=== PATIENT | male | born 1980 | race Caucasian/White ===

== ENCOUNTER 2021-04-15 09:52 | Inpatient (IN) ==
[2021-04-15 11:03] LABS: Basophils % 0.2 % (0.0-0.8); Hematocrit 47.2 VOL% (42.0-52.0); Hemoglobin 15.6 GM/DL (14.0-18.0); Immature Granulocytes % 0.7 %; Immature Granulocytes Absolute 0.03 #; Lymphocytes # 0.8 10*3/uL (1.4-4.0); Lymphocytes % 19.4 % (21.2-54.2); Mean Corpuscular HGB Conc 33.1 GM/DL (32-36); Mean Corpuscular Volume 85.5 FL (87-102); Mean Platelet Volume 10.2 FL (9.6-12.0); Monocytes % 3.6 % (1.7-12.7); Neutrophils % 76.1 % (38.7-73.9); Platelet Count 206 T/CUMM (130-400); Red Blood Count 5.52 MC/CUMM (3.8-5.5); Red Cell Distribution Width 12.3 % (9.3-17.3); White Blood Count 4.2 T/CUMM (4-12)
[2021-04-15 11:09] LABS: Ferritin 1686.9 ng/mL (26-388)
[2021-04-15 12:02] LABS: Osmolality,Calculated 275.1 MOS/KG (273-304); Potassium 3.5 MMOL/L (3.5-5.1)
[2021-04-15] MEDS ORDERED: ONDANSETRON 4 MG/2 ML VIAL IV PRN (12:50)
[2021-04-15] MEDS ORDERED: MELATONIN 3 MG TABLET PO PRN (12:50)
[2021-04-15] MEDS ORDERED: DEXTROSE 10% 250 ML BAG IV PRN (12:50)
[2021-04-15] MEDS ORDERED: AZITHROMYCIN INJ 500 MG in SODIUM CHLORIDE 0.9% 250 ML IV ONE (12:50)
[2021-04-15] MEDS ORDERED: GLUCAGON 1 MG VIAL IM PRN (12:50)
[2021-04-15] MEDS: CETIRIZINE 10 MG TABLET PO SCH (13:41)
[2021-04-15] MEDS: CHOLECALCIFEROL 1,000 UNIT TABLET PO SCH (13:41)
[2021-04-15] MEDS: ASCORBIC ACID 500 MG TABLET PO SCH ×2 (13:41→22:00)
[2021-04-15] MEDS: DEXAMETHASONE 4 MG/1 ML VIAL IV SCH (13:41)
[2021-04-15] MEDS: FAMOTIDINE 20 MG TABLET PO SCH ×2 (13:41→22:00)
[2021-04-15] MEDS: ZINC GLUCONATE 50 MG TABLET PO SCH (13:41)
[2021-04-15] MEDS ORDERED: REMDESIVIR 200 MG in SODIUM CHLORIDE 0.9% 210 ML IV ONE (15:00)
[2021-04-15] MEDS ORDERED: ALPRAZolam 0.5 MG TABLET PO PRN (17:07)
[2021-04-15] MEDS ORDERED: oxyCODONE/ACETAMINOPHEN 5-325 MG TABLET PO PRN (17:08)
[2021-04-15] MEDS ORDERED: fentaNYL 25 MCG/HR PATCH TRANSDERM SCH (17:30)
[2021-04-15] MEDS ORDERED: ZALEPLON 5 MG CAPSULE PO SCH (21:00)
[2021-04-15] MEDS: ENOXAPARIN 40 MG/0.4 ML SYRINGE SUBCUT SCH (22:00)
[2021-04-15] MEDS: TAMSULOSIN 0.4 MG CAPSULE PO SCH (22:00)
[2021-04-16] MEDS: ZIPRASIDONE 20 MG CAPSULE PO SCH ×3 (02:23→21:55)
[2021-04-16 05:38] LABS: Basophils % 0.3 % (0.0-0.8); Hematocrit 44.3 VOL% (42.0-52.0); Hemoglobin 14.8 GM/DL (14.0-18.0); Immature Granulocytes % 0.8 %; Immature Granulocytes Absolute 0.03 #; Lymphocytes # 0.8 10*3/uL (1.4-4.0); Lymphocytes % 21.5 % (21.2-54.2); Mean Corpuscular HGB Conc 33.4 GM/DL (32-36); Mean Corpuscular Volume 84.9 FL (87-102); Mean Platelet Volume 10.3 FL (9.6-12.0); Monocytes % 7.1 % (1.7-12.7); Neutrophils % 70.3 % (38.7-73.9); Platelet Count 209 T/CUMM (130-400); Red Blood Count 5.22 MC/CUMM (3.8-5.5); Red Cell Distribution Width 12.3 % (9.3-17.3); White Blood Count 3.5 T/CUMM (4-12)
[2021-04-16 06:18] LABS: Calcium 8.6 MG/DL (8.5-10.1); Ferritin 1757.6 ng/mL (26-388); Potassium 4.1 MMOL/L (3.5-5.1)
[2021-04-16 06:49] LABS: Sedimentation Rate-Westergren 40 MM/HR (0-15)
[2021-04-16] MEDS ORDERED: ZIPRASIDONE HCL 60 MG PO PRN (08:02)
[2021-04-16] MEDS ORDERED: ALPRAZolam 0.5 MG TABLET PO PRN (08:07)
[2021-04-16] MEDS ORDERED: ZALEPLON 5 MG CAPSULE PO PRN (08:10)
[2021-04-16] MEDS ORDERED: SERTRALINE 100 MG TABLET PO SCH (09:00)
[2021-04-16] MEDS ORDERED: amLODIPine 5 MG TABLET PO SCH (09:00)
[2021-04-16] MEDS: ASCORBIC ACID 500 MG TABLET PO SCH ×2 (09:37→21:47)
[2021-04-16] MEDS: CHOLECALCIFEROL 1,000 UNIT TABLET PO SCH (09:37)
[2021-04-16] MEDS: ZINC GLUCONATE 50 MG TABLET PO SCH (09:37)
[2021-04-16] MEDS: FAMOTIDINE 20 MG TABLET PO SCH ×2 (09:38→21:47)
[2021-04-16] MEDS: FENOFIBRATE 160 MG TABLET PO SCH (09:38)
[2021-04-16] MEDS: TAMSULOSIN 0.4 MG CAPSULE PO SCH ×2 (09:38→21:47)
[2021-04-16] MEDS: DEXAMETHASONE 4 MG/1 ML VIAL IV SCH (09:38)
[2021-04-16] MEDS: CETIRIZINE 10 MG TABLET PO SCH (09:38)
[2021-04-16] MEDS: AZITHROMYCIN 250 MG TABLET PO SCH (09:38)
[2021-04-16] MEDS: METOPROLOL SUCCINATE XL 100 MG TABLET PO SCH (09:38)
[2021-04-16] MEDS: ENOXAPARIN 40 MG/0.4 ML SYRINGE SUBCUT SCH ×2 (09:39→21:47)
[2021-04-16] MEDS: REMDESIVIR 100 MG in SODIUM CHLORIDE 0.9% 100 ML IV SCH (09:44)
[2021-04-16] MEDS: EZETIMIBE 10 MG TABLET PO SCH (11:59)
[2021-04-16] MEDS ORDERED: ATORVASTATIN 40 MG TABLET PO SCH (21:00)
[2021-04-16] MEDS: cloNIDine 0.1 MG TABLET PO SCH (21:47)
[2021-04-17 03:07] LABS: Basophils % 0.2 % (0.0-0.8); Hematocrit 46.2 VOL% (42.0-52.0); Hemoglobin 15.2 GM/DL (14.0-18.0); Immature Granulocytes % 0.7 %; Immature Granulocytes Absolute 0.03 #; Lymphocytes # 0.7 10*3/uL (1.4-4.0); Lymphocytes % 15.6 % (21.2-54.2); Mean Corpuscular HGB Conc 32.9 GM/DL (32-36); Mean Corpuscular Volume 86.8 FL (87-102); Mean Platelet Volume 10.4 FL (9.6-12.0); Monocytes % 5.6 % (1.7-12.7); Neutrophils % 77.9 % (38.7-73.9); Platelet Count 275 T/CUMM (130-400); Red Blood Count 5.32 MC/CUMM (3.8-5.5); Red Cell Distribution Width 12.4 % (9.3-17.3); White Blood Count 4.5 T/CUMM (4-12)
[2021-04-17 03:37] LABS: Calcium 8.6 MG/DL (8.5-10.1); Osmolality,Calculated 283.5 MOS/KG (273-304); Potassium 4.1 MMOL/L (3.5-5.1)
[2021-04-17] MEDS: oxyCODONE/ACETAMINOPHEN 5-325 MG TABLET PO PRN (07:59)
[2021-04-17] MEDS: METOPROLOL SUCCINATE XL 100 MG TABLET PO SCH (09:03)
[2021-04-17] MEDS: CHOLECALCIFEROL 1,000 UNIT TABLET PO SCH (09:03)
[2021-04-17] MEDS: ZINC GLUCONATE 50 MG TABLET PO SCH (09:03)
[2021-04-17] MEDS: EZETIMIBE 10 MG TABLET PO SCH (09:03)
[2021-04-17] MEDS: ENOXAPARIN 40 MG/0.4 ML SYRINGE SUBCUT SCH ×2 (09:03→22:49)
[2021-04-17] MEDS: ASCORBIC ACID 500 MG TABLET PO SCH ×2 (09:04→22:50)
[2021-04-17] MEDS: AZITHROMYCIN 250 MG TABLET PO SCH (09:04)
[2021-04-17] MEDS: FENOFIBRATE 160 MG TABLET PO SCH (09:04)
[2021-04-17] MEDS: FAMOTIDINE 20 MG TABLET PO SCH ×2 (09:04→23:05)
[2021-04-17] MEDS: CETIRIZINE 10 MG TABLET PO SCH (09:04)
[2021-04-17] MEDS: TAMSULOSIN 0.4 MG CAPSULE PO SCH ×2 (09:04→22:49)
[2021-04-17] MEDS: ZIPRASIDONE 20 MG CAPSULE PO SCH ×2 (09:04→23:16)
[2021-04-17] MEDS: DEXAMETHASONE 4 MG/1 ML VIAL IV SCH (09:05)
[2021-04-17] MEDS: REMDESIVIR 100 MG in SODIUM CHLORIDE 0.9% 100 ML IV SCH (09:13)
[2021-04-17] MEDS: methylPREDNISolone SOD SUC 40 MG/1 ML VIAL IV SCH ×2 (13:55→22:47)
[2021-04-17] MEDS: IVERMECTIN 3 MG TABLET PO SCH (13:55)
[2021-04-17] MEDS ORDERED: MELATONIN 3 MG TABLET PO SCH (21:00)
[2021-04-17] MEDS: cloNIDine 0.1 MG TABLET PO SCH (22:48)
[2021-04-17] MEDS: CHOLECALCIFEROL 5,000 UNIT TABLET PO SCH (22:49)
[2021-04-18] MEDS: oxyCODONE/ACETAMINOPHEN 5-325 MG TABLET PO PRN (05:13)
[2021-04-18] MEDS: methylPREDNISolone SOD SUC 40 MG/1 ML VIAL IV SCH ×2 (05:18→11:50)
[2021-04-18 05:36] LABS: Basophils % 0.2 % (0.0-0.8); Hematocrit 45.2 VOL% (42.0-52.0); Hemoglobin 14.6 GM/DL (14.0-18.0); Immature Granulocytes % 0.6 %; Immature Granulocytes Absolute 0.03 #; Lymphocytes # 0.6 10*3/uL (1.4-4.0); Lymphocytes % 11.1 % (21.2-54.2); Mean Corpuscular HGB Conc 32.3 GM/DL (32-36); Mean Corpuscular Volume 88.6 FL (87-102); Mean Platelet Volume 10.6 FL (9.6-12.0); Monocytes % 4.8 % (1.7-12.7); Neutrophils % 83.3 % (38.7-73.9); Platelet Count 301 T/CUMM (130-400); Red Cell Distribution Width 12.3 % (9.3-17.3)
[2021-04-18 06:02] LABS: Calcium 8.5 MG/DL (8.5-10.1); Osmolality,Calculated 286.5 MOS/KG (273-304); Potassium 4.4 MMOL/L (3.5-5.1)
[2021-04-18 06:06] LABS: Ferritin 1244.2 ng/mL (26-388)
[2021-04-18] MEDS ORDERED: ZINC GLUCONATE 50 MG TABLET PO SCH (09:00)
[2021-04-18] MEDS: ENOXAPARIN 40 MG/0.4 ML SYRINGE SUBCUT SCH (10:04)
[2021-04-18] MEDS: METOPROLOL SUCCINATE XL 100 MG TABLET PO SCH (10:05)
[2021-04-18] MEDS: IVERMECTIN 3 MG TABLET PO SCH (10:05)
[2021-04-18] MEDS: CETIRIZINE 10 MG TABLET PO SCH (10:05)
[2021-04-18] MEDS: EZETIMIBE 10 MG TABLET PO SCH (10:06)
[2021-04-18] MEDS: AZITHROMYCIN 250 MG TABLET PO SCH (10:06)
[2021-04-18] MEDS: ASCORBIC ACID 500 MG TABLET PO SCH (10:06)
[2021-04-18] MEDS: FENOFIBRATE 160 MG TABLET PO SCH (10:06)
[2021-04-18] MEDS: TAMSULOSIN 0.4 MG CAPSULE PO SCH (10:06)
[2021-04-18] MEDS: FAMOTIDINE 20 MG TABLET PO SCH (10:06)
[2021-04-18] MEDS: CHOLECALCIFEROL 5,000 UNIT TABLET PO SCH (10:08)
[2021-04-18] MEDS: ZIPRASIDONE 20 MG CAPSULE PO SCH (10:08)
[2021-04-18 10:41] VITALS: BP 125/72
== END 2021-04-18 16:45 | disposition home or self-care (01) | DRG 177 ==
LOC: N.ED 09:52 → N.EDINP 12:50 → SUATTDRO 12:50 → N.3E 19:02
PROVIDERS: ADMIT Phlebology; ATTEND Internal Medicine